=== PATIENT | male | born 1960 | race Caucasian/White ===

== ENCOUNTER → 2021-08-17 13:13 | Outpatient (CLI) | payer OTHER, SELFPAY ==
--- NOTE | 2021-08-17 13:13 | US_ITS ---
PROCEDURE: US THYROID CLINICAL INDICATION: palpable fullness mid-line COMPARISON: No exams were available for comparison FINDINGS: Right lobe: The right lobe is 4.4 x 1.2 x 1.8 cm. Homogeneous echogenicity. No thyroid nodule apparent. Small lymph node is present along the right lobe laterally measuring approximately 1 cm. Left lobe: 4.6 x 1.5 x 1.7 cm. Homogeneous echogenicity. No nodule apparent. Isthmus: The isthmus is slightly thickened at 0.5 cm. Benign-appearing cyst is present in the mid and right aspect of the isthmus measuring 1.8 x 0.9 by 1.5 cm. TR 1, benign. In the left paracentral aspect of the isthmus there are 2 small cysts versus 1 septated cyst which in combination measure 0.5 x 0.5 x 0.6 cm. TR 1, benign Additional findings: IMPRESSION: Benign-appearing cystic lesions in the isthmus Small lymph node along the right lateral aspect of the thyroid gland at approximately 1 cm. Dictated by: Pineda Brown MD 08/17/2021 17:17 Pineda Brown MD in [place] 08/17/2021 17:17
== END ==
PROVIDERS: PCP Family Medicine; Visit Provider Family Medicine
DX: E07.89 Other specified disorders of thyroid (principal)
CPT/HCPCS: 76536

== ENCOUNTER 2024-07-19 18:19 | Outpatient (CLI) | payer OTHER, SELFPAY ==
[2024-07-19 18:05] LABS: Basophils # 0.1 K/mm3 (0-0.2); Basophils % 0.7 % (0.1-2.0); Eosinophils # 0.2 K/mm3 (0.0-0.4); Eosinophils % 2.6 % (0.1-12.0); Hematocrit 47.4 % (42.0-52.0); Hemoglobin 16.3 g/dL (14.1-18.0); Lymphocytes # 2.3 K/mm3 (0.7-4.5); Mean Corpuscular HGB Conc 34.3 g/dL (31.8-35.4); Mean Corpuscular Hemoglobin 31.9 pg (27.0-31.2); Mean Corpuscular Volume 92.8 fl (80-94); Mean Platelet Volume 8.1 fl (7.4-10.4); Monocytes # 0.4 K/mm3 (0.1-1.0); Monocytes % 5.6 % (1.7-9.3); Platelet Count 280 K/mm3 (142-424); Red Cell Distribution Width 13.3 % (11.5-17.5); White Blood Count 6.9 K/mm3 (4.8-10.8)
[2024-07-19 18:11] LABS: Albumin Level 4.6 g/dl (3.5-5.0); Chloride 104 mmol/L (98-107); Sodium 141 mmol/L (136-145)
[2024-07-19 18:13] LABS: Alanine Aminotransferase 31 U/L (12-78); Aspartate Amino Transferase 37 U/L (17-59); Blood Urea Nitrogen 22 mg/dl (9-20); Estimated Glomerular Filt Rate 97 ml/min (>60); GFR (African American) 118 ML/MIN (>60)
[2024-07-19 18:14] LABS: Albumin/Globulin Ratio 1.8 (1.1-1.8); Alkaline Phosphatase 62 U/L (38-126); Bilirubin,Total 0.8 mg/dl (0.2-1.3); Calcium 9.9 mg/dl (8.4-10.2); Carbon Dioxide 30 mmol/L (22.0-30.0); Chol/HDL Ratio 3.6 (1-3.5); Cholesterol 182 mg/dl (140-200); Globulin 2.6 g/dL (1.3-3.2); Glucose 100 mg/dl (74-100); HDL Cholesterol 51 mg/dl (40-60); Total Protein,Serum 7.2 g/dl (6.3-8.2); Triglycerides 140 mg/dl (30-150); VLDL Cholesterol 28 mg/dL (0-40)
[2024-07-19 18:26] LABS: Direct LDL Cholesterol 86.55 mg/dL (100-129)
[2024-07-19 18:46] LABS: Thyroid Stimulating Hormone 1.25 uIU/mL (0.465-4.68)
== END 2024-07-19 23:59 | disposition home or self-care (01) ==
LOC: LAB.DROPOF 18:19
PROVIDERS: PCP Family Medicine; Visit Provider Family Medicine
DX: E78.5 Hyperlipidemia, unspecified (principal); I10 Essential (primary) hypertension
CPT/HCPCS: 80050; 80053; 80061; 84443; 85025; G0103

== ENCOUNTER 2024-08-08 14:01 | Outpatient (CLI) | payer OTHER, SELFPAY ==
--- NOTE | 2024-08-08 14:05 | US_ITS ---
FINAL REPORT CLINICAL HISTORY: FU ISTHMUS NODULE COMPARISON: None FINDINGS: Sonographic images of the thyroid gland were obtained. The right thyroid lobe measures 52 mm. in length. The left thyroid lobe measures 53 mm. in length. The thyroid isthmus measures 7 mm. The echogenicity is normal. Cystic nodule in the right isthmus measures 21 x 19 x 9 mm with debris within it, TR 1. 2nd cystic nodule in the isthmus measuring 6 x 5 x 4 mm, TR 1. IMPRESSION: Isthmus nodules as above with no specific follow-up recommended per TI-RADS criteria. Reviewed, Interpreted and Dictated by Brenton Mora III, MD Transcribed by Kinjal Robledo Authenticated and [facility]
--- NOTE | 2024-08-08 14:05 | CT_ITS ---
APPROVED REPORT Sales And Service Representative: CLINICAL INDICATION Risk stratification TECHNIQUE Image Acquisition: A 128 slice MDCT scanner (Immediaa View) was used for data acquisition. A noncontrast coronary calcium scan was performed. A CT attenuation threshold of 130 Hounsfield units (HU) was used for the detection of calcium in contiguous voxels of 1 sq mm in area to be counted as individual lesions. A tube voltage of 120 KVp was used. The patient received no medications prior to the coronary calcium CT. Image Reconstruction Transaxial images were reconstructed at 0.67 mm slide thickness. Data was reviewed interactively on an advanced workstation capable of 2 and 3-dimensional displays in all conventional reconstruction formats, including multiplanar reformations, maximum intensity projections, curved multiplanar reformations, and volume rendered reconstructions. When applicable, selected routine images describing the relevant coronary anatomy and pathology were saved and sent to PACS. Complications None Technical Quality Overall image quality was good. Total DLP (Dose-Length Product) is 161.9 mGy-cm. The reported value represents the total of one or more individual components during the CT acquisition of this date and at this time, and as such, the same value may appear in more than one CT report depending on the interpreting/reporting physicians. COMPARISON None FINDINGS CT Coronary Calcium Scoring LMA (Left Main Artery) = 0 LAD (Left Anterior Descending) = 96 LCX (Left Coronary Circumflex) = 3 RCA (Right Coronary Artery) = 0 Total Calcium Score = 99 using the AJ-130 method. There is no identifiable calcification in the aortic valve, mitral annulus or mitral valve, pericardium, or myocardium. IMPRESSION -Coronary artery calcification is present. -Total Calcium Score (Agatston Score) = 99 using the AJ-130 method. -The observed calcium score of 99 is at 57th percentile for subjects of the same age, sex, and race/ethnicity. The interpretation of the calcium heart score is based on the following continuum*: 0 = no calcified plaque detected (risk of coronary artery disease is very low ??? less than 5%) 1-10 = calcium detected in extremely minimal levels (risk of coronary diseases is still low ??? less than 10%) 11-100 = mild levels of plaque detected with certainty (mild or minimal narrowing of heart arteries is likely) 101-400 = definite,at least moderate levels of plaque detected (relatively high risk of a heart attack within 3-5 years) >401-999 = extensive levels of plaque detected (high risk of heart attack, high levels of vascular disease are present, high likelihood of at least one significant coronary narrowing) *The calcium heart score quantifies the burden of coronary calcification/plaque in the coronary arteries. The calcium heart score does not evaluate the presence or the burden of non-calcified (i.e. soft) plaque. The coronary and cardiac findings of this Coronary Calcium CT were reviewed, reported, and signed by Robert Blanco MD (Basket Patcher). Conclusion Electronically signed by : Olivia Blanco MD 08/09/2024 09:40:48
== END 2024-08-08 23:59 | disposition home or self-care (01) ==
LOC: RAD 14:02
PROVIDERS: PCP Family Medicine; Visit Provider Family Medicine
DX: E78.5 Hyperlipidemia, unspecified (principal); E04.1 Nontoxic single thyroid nodule; I10 Essential (primary) hypertension
CPT/HCPCS: 75571; 76536

== ENCOUNTER 2024-08-08 15:12 | Outpatient (CLI) | payer SELFPAY | END 2024-08-08 23:59 | disposition home or self-care (01) | LOC: RAD 15:12 | PROVIDERS: PCP Family Medicine; Visit Provider Family Medicine | DX: I10 Essential (primary) hypertension (principal) ==